=== PATIENT | male | born 1955 | race Caucasian/White ===

== ENCOUNTER → 2016-12-31 | Outpatient (CLI) | payer BC ==
[~2016-12-31] MED LIST: AVD5 PO; FLM4 PO; IBUP-1050 PO; INSUINJ SC; INSUINJ17 SC; LISI-725 PO
[2016-12-31 10:26] LABS: ESTIMATED AVERAGE GLUCOSE 183 mg/dl; HA1C FLAG Normal (Normal)
== END | disposition home or self-care (01) ==
LOC: C.LAB1850 07:33
PROVIDERS: ATTEND Internal Medicine
DX: E11.9 Type 2 diabetes mellitus without complications (principal)

== ENCOUNTER → 2017-07-07 | Outpatient (CLI) | payer BC ==
[2017-07-07 09:33] LABS: BASO % 0.6 %; BASO ABS # 0.04 K/uL (0-0.2); COMPLETE YES; EOS % 6.8 %; HEMATOCRIT 46.5 % (42-52); IG% 0.2 %; LYMPH % 23.2 %; LYMPH ABS # 1.44 K/uL (1.2-3.4); MEAN CELL VOLUME 95.1 fL (80-100); MEAN CORPUSCULAR HEMOGLOBIN 31.7 pg (25-34); MEAN CORPUSCULAR HGB CONC 33.3 g/dl (32-36); MEAN PLATELET VOLUME 11.1 fL (7.4-10.4); NEUT % 60.2 %; PLATELET COUNT 230 K/uL (130-400); RED BLOOD COUNT 4.89 M/uL (4.7-6.1)
[2017-07-07 09:52] LABS: BLOOD UREA NITROGEN 12 mg/dl (7-18); BUN/CREATININE RATIO 14.4 (10-20); CALCIUM 8.7 mg/dl (8.5-10.1); CARBON DIOXIDE 26 mmol/L (21-32); CHLORIDE 105 mmol/L (98-107); CREATININE 0.84 mg/dl (0.60-1.40); GLUCOSE 248 mg/dl (70-99); POTASSIUM 4.2 mmol/L (3.5-5.1); SODIUM 136 mmol/L (136-145)
[2017-07-07 09:53] LABS: URINE APPEARANCE CLEAR (CLEAR); URINE BILIRUBIN NEG (NEG); URINE COLOR YELLOW; URINE EPITHELIAL CELL AUTO 0-5 /lpf (0-5); URINE NITRITE NEG (NEG); URINE SPECIFIC GRAVITY 1.032 (1.000-1.030); UROBILINOGEN NEG (NEG)
[2017-07-07 09:54] LABS: MANUAL MICROSCOPIC REQUIRED? NO; REVIEW REQ? NO
[2017-07-07 10:01] LABS: CHOLESTEROL/HDL RATIO 3.9; ESTIMATED AVERAGE GLUCOSE 183 mg/dl; HA1C FLAG Normal (Normal); THYROID STIMULATING HORMONE 0.963 uIu/ml (0.300-4.500); URIC ACID 2.4 mg/dl (2.6-7.2)
[2017-07-07 10:18] LABS: RATIO 11.5 mcg/mg (0-30.0)
== END | disposition home or self-care (01) ==
LOC: C.LAB1850 07:08
PROVIDERS: ATTEND Internal Medicine
DX: N04.9 Nephrotic syndrome with unspecified morphologic changes (principal)

== ENCOUNTER → 2017-10-27 | Outpatient (CLI) | payer BC ==
[2017-10-27 09:51] LABS: HEMOGLOBIN A1C 7.3 % (4.5-5.6)
== END | disposition home or self-care (01) ==
LOC: C.LAB1850 07:18
PROVIDERS: ATTEND Internal Medicine
DX: I10 Essential (primary) hypertension (principal); N40.1 Benign prostatic hyperplasia with lower urinary tract symptoms; Z12.5 Encounter for screening for malignant neoplasm of prostate

== ENCOUNTER → 2018-02-14 | Outpatient (CLI) | payer BC ==
[2018-02-14 09:50] LABS: HEMOGLOBIN A1C 7.5 % (4.5-5.6)
== END | disposition home or self-care (01) ==
LOC: C.LAB1850 08:12
PROVIDERS: ATTEND Internal Medicine
DX: E78.00 Pure hypercholesterolemia, unspecified (principal)

== ENCOUNTER → 2018-02-21 | Outpatient (CLI) | payer BC | END | disposition home or self-care (01) | LOC: C.LAB1850 10:38 | PROVIDERS: ATTEND Urology | DX: R97.20 Elevated prostate specific antigen [PSA] (principal) ==

== ENCOUNTER 2018-10-12 12:53 | Observation (INO) ==
[2018-10-12] MEDS ORDERED: HEPARIN (PORCINE) 1000 UNIT/ML 10 ML (CATH LAB USE ONLY) ONE ×2 (13:32→16:54)
[2018-10-12] MEDS ORDERED: NITROGLYCERIN/D5W 100MCG/ML 20ML SYR ONE (13:32)
[2018-10-12] MEDS ORDERED: fentaNYL citrate 100 MCG/2 ML VIAL ONE ×2 (13:32→16:09)
[2018-10-12] MEDS ORDERED: MIDAZOLAM HCL 1 MG/ML 2ML VIAL ONE ×2 (13:32→15:56)
[2018-10-12] MEDS ORDERED: NiCARDipine HCL INJ 2.5 MG/ML 10 ML AMP ONE (13:32)
[2018-10-12] MEDS ORDERED: LIDOCAINE HCL 1% 20 ML VIAL ONE (13:32)
--- NOTE | 2018-10-12 17:30 | Pre Anesthesia Assessment ---
Date of Service October 12, 2018 Pre Sedation Assessment Vital Signs Temp Pulse Resp BP Pulse Ox 10/12/18 13:14 36.6 C 63 18 123/63 98 Cardiovascular RRR, no murmur, no edema Respiratory normal respiratory effort, lungs clear to auscultation Pre-Sedation Airway Assessment Smoking Status: Former smoker Hx Sleep Apnea: No Hx Difficult Intubation: No Short, Thick Neck: No Thyromental Distance: > or= 3.5 Finger Breadths Oral Cavity: + Dentures Mallampati Class: III ASA: ASA3 NPO Status Date of Last Intake of Fluids: 10/12/18 Time of Last Intake of Fluids: 08:00 Date of Last Intake of Solid Food: 10/12/18 Time of Last Intake of Solid Foods: 08:00 Procedure Planning Contraindications for Sedation: none Current Medications Reviewed: Yes Notes The planned sedation has been discussed with the patient. Informed Consent was obtained. I have identified the patient, determined the appropriateness of sedation and have assessed the patient immediately prior to the procedure. All medicine(s) and interventions are by my order.
--- NOTE | 2018-10-12 17:32 | History & Physical Report ---
Date of Service October 12, 2018 Assessment & Plan (1) Multi-vessel coronary artery stenosis: Proceed with staged PCI of mid LAD/Diagonal bifurcation. History of Present Illness Primary Care Provider: Kody Walker MD Mr. Mcfadden is a 62-year-old man with a history of hypertension, dyslipidemia, insulin-dependent diabetes, nephrotic syndrome and ongoing tobacco abuse who presented on 10/07/2018 with approximately 2 hours of substernal chest pain. Patient has a history of presumed coronary artery disease in the setting of NSTEMI back in 2010. At that time nuclear stress test suggested apical ischemia. Cardiac catheterization was attempted but aborted after radial artery spasm, femoral artery dissection. Upon arrival to ED patient had borderline inferior ST elevations with ongoing active chest pain and a heart alert was activated. Cardiac catheterization revealed a subtotally occluded mid RCA which during diagnostic angiography became acutely occluded with resulting inferior ST elevations, increased chest pain. Patient was treated with primary PCI with single drug-eluting stent to his mid RCA. He was noted to have severe non- culprit vessel disease with a 95% mid LAD stenosis at the bifurcation of a large second diagonal. Small distal circumflex was occluded with a left PLB filling via left to left collaterals. Following PCI patient was chest pain-free. He was admitted to the ICU. His troponin peaked at 27. Repeat echocardiogram showed preserved LV function with basilar inferior/inferolateral hypokinesis. He remained hemodynamically and electrically stable and was transferred to telemetry on hospital day 2. On hospital day 3 he was up walking the halls with no recurrent chest pain and was discharged to home with plan for staged PCI of LAD as an outpatient. Allergies Allergy/AdvReac Type Severity Reaction Status Date / Time No Known Allergies Allergy Unknown . Verified 02/28/09 09:58 Home Medications Home Medications Medication Instructions Recorded Confirmed Type aspirin [Ecotrin Low Strength] 81 mg PO DAILY 10/08/18 10/12/18 History dutasteride 0.5 mg PO DAILY 10/08/18 10/12/18 History escitalopram oxalate 10 mg PO DAILY 10/08/18 10/12/18 History insulin NPH isoph U-100 human 16 unit SUBCUT DAILYBD 10/08/18 10/12/18 History [Novolin N NPH U-100 Insulin] insulin NPH isoph U-100 human 46 unit SUBCUT QAM 10/08/18 10/12/18 History [Novolin N NPH U-100 Insulin] losartan 25 mg PO DAILY 10/08/18 10/12/18 History metoprolol tartrate 25 mg PO BID 10/08/18 10/12/18 History tamsulosin 0.4 mg PO DAILY 10/08/18 10/12/18 History atorvastatin 80 mg PO DAILY #0 tab 10/09/18 10/12/18 Rx ticagrelor [Brilinta] 90 mg PO BID #60 tab 10/09/18 10/12/18 Rx Past Med/Surg History Medical History CAD (coronary artery disease) Social History Current Living Situation: Spouse Other Information That Helps Us Care for You: No Feels Safe at Home: Yes Safety Concerns: Feels Safe At This Time Smoking Status: Former smoker Tobacco Type: cigarettes Do You Dip or Chew Tobacco: No Hx Alcohol Use: No Hx Substance Use: No Beliefs That Will Affect Care: None Preferred Language: Greenlandic Chief Operator Hydroformer Required: Yes Review of Systems All systems reviewed & are unremarkable except as noted in HPI & below Physical Exam 2 Vital Signs (Past 24 Hours): Last Vital Signs Temp 36.6 C 10/12/18 13:14 Pulse 63 10/12/18 13:14 Resp 18 10/12/18 13:14 BP 123/63 10/12/18 13:14 Pulse Ox 98 10/12/18 13:14 Constitutional: WD/WN, vitals as above Eyes: + anicteric sclerae Neck: trachea midline, no thyromegaly Respiratory: normal respiratory effort, lungs clear to auscultation Cardiovascular: RRR, no murmur, no edema Gastrointestinal (Abdomen): normal bowel sounds, soft, nontender, no hepatosplenomegaly Skin: no rashes, warm and dry Psychiatric: A+Ox3, euthymic affect ASA Classification ASA ASA3
--- NOTE | 2018-10-12 17:37 | Post Anesthesia Assessment ---
Date of Service October 12, 2018 Post Sedation Assessment Vital Signs Temp Pulse Resp BP Pulse Ox 10/12/18 13:14 36.6 C 63 18 123/63 98 Recovery Score Activity: Moves 4 extremities Respiration: Deep Breath/Cough Circulation: +/-20% PreAnes Value Consciousness: Fully Awake Oxygen Saturation: O2 needed for >90% Discharge Sedation Level of Care: Fast Track Phase II Post Sedation Plan On clinical assessment, the patient appears to have tolerated the sedation without complications. Patient is recovering as anticipated. Patient will continue to be monitored by nursing and may be discharged when sedation discharge criteria are met per below protocol. Upon Completions of procedure and additional 15 minutes continue every 5 minute vital signs and the P.A.R. score; then discharge to a Phase I or Fast Track to Phase II per the following guidelines: * Discharge Patient to appropriate Phase II area if PAR is 8 or greater or return to pre- procedure baseline. The post - procedure orders will be as directed. * If PAR score is less than 8 or not return to pre-procedure baseline then patient will follow Phase I monitoring till PAR is reached for Phase II. The Phase I may be done in procedure room or may call to secure a Phase I area. * If naloxone or flumazenil are used for reversal, hold in Phase I for continued monitoring from when last reversal dose was given for a minimum of 60 minutes or longer pending the nurse and/or physician discretion of patient condition before discharge to Phase II. Please call the Sedation Physician to re-evaluate and complete post-note for discharge to Phase II area. Do NOT discharge from procedure sedation or Phase 1 until post- sedation evaluation note is complete by procedure /sedation MD Sedation Discharge Instructions to be given to the patient at discharge to home.
--- NOTE | 2018-10-12 17:39 | Cardiac Catheterization ---
Cardiac Cath Procedure Full Procedure Date October 12, 2018 Pre-Procedure Diagnosis Pre-Procedure Diagnosis: CAD AUC Score AUC Score: 8 Post-Procedure Diagnosis Post-Procedure Diagnosis: Severe CAD and Successful PCI Procedure(s) Performed Procedure(s) Performed: Coronary Angiography, Drug Eluting Stent and IVUS Commercial Fishing Vessel Operator Gabe Solis MD Signal Tester(s) Blade Estimated Blood Loss Estimated Blood Loss: 10 Medication(s) Medication(s): Fentanyl, Heparin, Hydralazine, Lidocaine 1%, Nicardipine, Nitroglycerin and Versed Summary of Findings Indication: Stage PCI for severe LAD/diagonal bifurcation disease noted during recent primary PCI for inferior STEMI Access: 6 [place] right radial artery Catheters: EBU 3.5 guide Findings: For full details of patient's coronary angiography please cath report dictated by me on 10/07/2018 Briefly, patient found to have multi vessel disease including a 95% stenosis involving the mid LAD and bifurcation of large second diagonal. Decision to proceed with stage PCI. -- PCI -- Antithrombotic therapy: Heparin, ticagrelor Procedure: Left main cannulated with EBU 3.5 guide Salesperson Floor Coverings 50 wire passed across lesion into distal diagonal With some difficulty eventually able to pass long whisper wire across lesion into distal LAD Mid LAD lesion predilated with 2.0, 2.5, 2.75 compliant balloons Diagonal lesion predilated with 2.5 compliant balloon Dilated mid LAD stented with 2.5 x 22 Tommy drug-eluting stent Diagonal rewired with pilot plant operator helper 50 wire Diagonal ostium dilated with 2.0 balloon Stent post-dilated with 3.0 noncompliant balloon to 20 meng Kissing balloon inflation with 3.0 NC and 2.0 balloon in diagonal Ostium of diagonal stented with 2.5 x 8 mm Tommy drug-eluting stent (T with protrusion). Kissing balloon inflation with 2.5 mm balloon in LAD, 2.5 stent balloon and diagonal Questionable haziness seen in the proximal stent. Stent postdilated again with 3.0 balloon IVUS used to assess proximal stent, noted to have eccentric calcification but no significant thrombus or edge dissection. IVUS noted significant moderate, calcified disease from proximal to mid LAD. Post procedure EDWARD 3 flow, stent well expanded with mild residual stenosis in LAD and no apparent cardiac complications. Arterial Closure: TR band Summary: 1. Successful PCI of mid LAD/second diagonal bifurcation with 2 drug-eluting stents (2.5 x 22 mm Tommy in LAD postdilated with 3.0 NC, 2.5 x 8 mm [place] to ostium of diagonal). 2. Moderate, severely calcified proximal LAD disease by IVUS. Recommendations: To PCU for continued monitoring Continue doing to platelet therapy with aspirin, ticagrelor Continue statin, and ASCVD risk factor modification Cardiac rehab Hemodynamics Rest Ao:: 90/46/64 Final Ao: 113/53/78 LV: Recommendations Recommendations: PCI without planned CABG Specimens Specimens: None Radiation Exposure (mGy) 6781 Contrast (mls) 150 Fluids (cc crystalloids) Fluids (cc crystalloids): 281 Drains Drains: None Anesthesia Moderate Procedural Complication(s) None Disposition PCU ACC Data: Ham Facer Cardiac Status Clinical evaluation leading to the procedure CAD Presenation: Non STEMI Anginal Classification: CCS IV Heart Failure: No Cardiogenic Shock within 24 Hours: No Cardiac Arrest within 24 Hours: No Imaging Studies Past 6 Months: Yes Stress Studies Past 6 Months: No Diagnostic Physicians Name: Gabe Solis MD Status: Elective Closure Device Percutaneous Entry Location: Radial Closure Device: Radial Band Recommendations: PCI without planned CABG PCI Indication: Staged PCI Lesion Segment Name: Mid LAD Culprit Artery: No Stenosis Prior to Rx (%): 95 Chronic Total Occlusion: No IVUS: Yes FFR: No Pre-Procedure EDWARD Flow: 3 Previously Treated Lesion: No Lesion Complexity: High/C Lesion Length (mm): 20 Thrombus Present: No Bifurcation Lesion: Yes Guidewire Across Lesion: Stenosis Post-Procedure (%): 10 Post-Procedure EDWARD Flow: 3 Devices(s) Deployed: Yes Yes Intraprocedure Events Significant Disection: No Perforation: No
[2018-10-12] MEDS ORDERED: ONDANSETRON INJ 2 MG/ML 2 ML VIAL IV PRN (17:48)
[2018-10-12] MEDS ORDERED: GLUCOSE 40% GEL 15 GM TUBE PO PRN (17:52)
[2018-10-12] MEDS ORDERED: GLUCOSE 10 TABS/TUBE PO PRN (17:52)
[2018-10-12] MEDS ORDERED: CARBOHYDRATES FOR HYPOGLYCEMIA PO PRN (17:52)
[2018-10-12] MEDS ORDERED: DEXTROSE 50% 50 ML SYRINGE IV PRN (17:52)
[2018-10-12] MEDS ORDERED: GLUCAGON FOR INJ 1 MG VIAL SQ PRN (17:52)
[2018-10-12] MEDS: SODIUM CHLORIDE 0.9% 1000ML 1,000 ML IV SCH (18:39)
[2018-10-12] MEDS ORDERED: PHARMACY GLYCEMIC MGMT CONSULT PRN (19:51)
[2018-10-12] MEDS ORDERED: INSULIN HUMAN NPH SC STA (20:18)
[2018-10-12] MEDS ORDERED: ACETAMINOPHEN 325 MG TAB PO PRN (20:21)
[2018-10-12] MEDS: TICAGRELOR 90 MG TAB PO SCH (20:43)
[2018-10-12] MEDS: METOPROLOL TARTRATE 25 MG TAB PO SCH (20:43)
[2018-10-12] MEDS: INSULIN ASPART 100 UNITS/ML 3 ML PEN SC SCH (20:47)
[2018-10-13] MEDS: SODIUM CHLORIDE 0.9% 1000ML 1,000 ML IV SCH (00:11)
[2018-10-13 05:56] LABS: Basophils # (auto) 0.03 K/uL (0-0.2); Basophils % (auto) 0.5 %; Eosinophils # (auto) 0.34 K/uL (0-0.5); Eosinophils % (auto) 5.2 %; Hemoglobin 14.7 g/dL (14.0-18.0); Immature Granulocytes # (auto) 0.01 K/uL (0.00-0.02); Immature Granulocytes % (auto) 0.2 %; Lymphocytes # (auto) 1.17 K/uL (1.2-3.4); Lymphocytes % (auto) 17.7 %; Mean Corpuscular Volume 93.3 fL (80-100); Monocytes # (auto) 0.62 K/uL (0.11-0.59); Monocytes % (auto) 9.4 %; Neutrophils # (auto) 4.43 K/uL (1.4-6.5); Platelet Count 199 K/uL (130-400); RDW Coefficient of Variation 12.2 % (11.5-14.5); RDW Standard Deviation 41.4 fL (36.4-46.3)
[2018-10-13 06:32] LABS: BUN Creatinine Ratio 18.1 (10-20); Calcium 8.1 mg/dl (8.5-10.1); Creatinine Clr Calc Pharmacy 112.1 ml/min; Est GFR (African American) 113.8; Est GFR (Non-African American) 98.2; Potassium 4.3 mmol/L (3.5-5.1)
[2018-10-13] MEDS: TICAGRELOR 90 MG TAB PO SCH (07:47)
[2018-10-13] MEDS: METOPROLOL TARTRATE 25 MG TAB PO SCH (07:48)
[2018-10-13] MEDS ORDERED: DUTASTERIDE 0.5 MG PO SCH (09:00)
[2018-10-13] MEDS ORDERED: INSULIN HUMAN NPH SC SCH ×2 (09:00→16:30)
[2018-10-13] MEDS ORDERED: ATORVASTATIN 40 MG TAB PO SCH (09:00)
[2018-10-13] MEDS ORDERED: INSULIN ISOPHANE SQ SCH (09:00)
[2018-10-13] MEDS ORDERED: TAMSULOSIN HCL 0.4 MG CAP PO SCH (09:00)
[2018-10-13] MEDS ORDERED: ASPIRIN 81 MG ECTAB PO SCH ×2 (09:00)
[2018-10-13] MEDS ORDERED: LOSARTAN POTASSIUM 25 MG TAB PO SCH (09:00)
[2018-10-13] MEDS: INSULIN ASPART 100 UNITS/ML 3 ML PEN SC SCH (09:03)
--- NOTE | 2018-10-19 11:03 | Discharge Summary ---
Date of Service October 19, 2018 Admission HPI Per Admitting Provider Mr. Mcfadden is a 62-year-old man with a history of hypertension, dyslipidemia, insulin-dependent diabetes, nephrotic syndrome and ongoing tobacco abuse who presented on 10/07/2018 with approximately 2 hours of substernal chest pain. Patient has a history of presumed coronary artery disease in the setting of NSTEMI back in 2010. At that time nuclear stress test suggested apical ischemia. Cardiac catheterization was attempted but aborted after radial artery spasm, femoral artery dissection. Upon arrival to ED patient had borderline inferior ST elevations with ongoing active chest pain and a heart alert was activated. Cardiac catheterization revealed a subtotally occluded mid RCA which during diagnostic angiography became acutely occluded with resulting inferior ST elevations, increased chest pain. Patient was treated with primary PCI with single drug-eluting stent to his mid RCA. He was noted to have severe non- culprit vessel disease with a 95% mid LAD stenosis at the bifurcation of a large second diagonal. Small distal circumflex was occluded with a left PLB filling via left to left collaterals. Following PCI patient was chest pain-free. He was admitted to the ICU. His troponin peaked at 27. Repeat echocardiogram showed preserved LV function with basilar inferior/inferolateral hypokinesis. He remained hemodynamically and electrically stable and was transferred to telemetry on hospital day 2. On hospital day 3 he was up walking the halls with no recurrent chest pain and was discharged to home with plan for staged PCI of LAD as an outpatient. Specialty Data Cardiology PCI of LAD: 1. Successful PCI of mid LAD/second diagonal bifurcation with 2 drug-eluting stents (2.5 x 22 mm Tommy in LAD postdilated with 3.0 NC, 2.5 x 8 mm [place] to ostium of diagonal). 2. Moderate, severely calcified proximal LAD disease by IVUS. Discharge Data Procedures Performed Operation Date: 10/12/18 12:30 Actual Procedures p Drug Eluting Stent SGl Vessel - Gabe Solis MD s Cineradiography w/Routine Exam - Gabe Solis MD s IVUS Coronary Single Vessel - Gabe Solis MD s Cath, Left with Cors and Vent - Gabe Solis MD Hospital Course (1) Multi-vessel coronary artery stenosis: Patient underwent staged PCI of mid LAD and second diagonal via right radial artery with 2 drug-eluting stents placed. Procedure was uncomplicated and was admitted to telemetry for observation overnight. Patient was chest pain free, telemetry unremarkable, no access site complications and follow-up labs unchanged. On hospital day 2 was discharged to home on dual-antiplatelet therapy with aspirin and ticareglor. Follow-up with cardiology in 2-3 weeks. Discharge Instructions Home Medications aspirin [Ecotrin Low Strength] 81 mg PO DAILY 10/08/18 [History Confirmed ] dutasteride 0.5 mg PO DAILY 10/08/18 [History Confirmed 10/12/18] escitalopram oxalate 10 mg PO DAILY 10/08/18 [History Confirmed 10/12/18] insulin NPH isoph U-100 human [Novolin N NPH U-100 Insulin] 16 unit SUBCUT DAILYBD 10/08/18 [History Confirmed 10/12/18] insulin NPH isoph U-100 human [Novolin N NPH U-100 Insulin] 46 unit SUBCUT QAM 10/08/18 [History Confirmed 10/12/18] losartan 25 mg PO DAILY 10/08/18 [History Confirmed 10/12/18] metoprolol tartrate 25 mg PO BID 10/08/18 [History Confirmed 10/12/18] tamsulosin 0.4 mg PO DAILY 10/08/18 [History Confirmed 10/12/18] atorvastatin 80 mg PO DAILY #0 tab 10/09/18 [Rx Confirmed 10/12/18] ticagrelor [Brilinta] 90 mg PO BID #60 tab 10/09/18 [Rx Confirmed 10/12/18]
== END 2018-10-13 10:55 | disposition home or self-care (01) ==
LOC: CC 12:53 → INTOOBSV 15:42 → 2S 15:42